=== PATIENT | female | born 1980 | race Caucasian/White ===

== ENCOUNTER 2016-12-04 01:12 | Emergency (ER) | payer SELFPAY ==
[2016-12-04 01:18] VITALS: TEMP 98.1
[2016-12-04 02:39] VITALS: BP 134/94; PULSE 88
== END 2016-12-04 02:40 | disposition home or self-care (01) ==
LOC: COL.ER 01:12
DX: G43.909 Migraine, unspecified, not intractable, without status migrainosus (principal); F10.120 Alcohol abuse with intoxication, uncomplicated; F17.210 Nicotine dependence, cigarettes, uncomplicated
CPT/HCPCS: J1885; J2765

== ENCOUNTER 2017-04-22 23:49 | Emergency (ER) | payer SELFPAY ==
[~2017-04-22] VITALS: Ht 172.7 cm; Wt 65.9 kg
[2017-04-22 23:51] VITALS: BP 140/98; TEMP 98.5
[2017-04-23 01:42] VITALS: PULSE 78
== END 2017-04-23 01:42 | disposition home or self-care (01) ==
LOC: COL.ER 23:49
DX: S71.112A Laceration without foreign body, left thigh, initial encounter (principal); F12.10 Cannabis abuse, uncomplicated; F17.210 Nicotine dependence, cigarettes, uncomplicated; W19.XXXA Unspecified fall, initial encounter; Y92.62 Dock or shipyard as the place of occurrence of the external cause

== ENCOUNTER → 2017-05-02 | Emergency (ER) | payer SELFPAY ==
[2017-05-02 10:05] VITALS: BP 127/82; PULSE 97
== END ==
LOC: COL.ER 09:26
DX: S81.012D Laceration without foreign body, left knee, subsequent encounter (principal); X58.XXXA Exposure to other specified factors, initial encounter